=== PATIENT | female | born 1960 | race Caucasian/White ===

== ENCOUNTER 2016-09-29 04:11 | Emergency (ER) | payer BC ==
[2016-09-29 04:41] VITALS: BP 124/83; PULSE 70; TEMP 98.2; BMI 26.2
[2016-09-29] MEDS ORDERED: PHENAZOPYRIDINE HCL 100 MG TABLET (FP) PO ONE (05:03)
[2016-09-29 05:07] LABS: URINE APPEARANCE CLOUDY; URINE BILIRUBIN NEGATIVE (NEGATIVE); URINE BLOOD 3+ (NEGATIVE); URINE COLOR RED; URINE GLUCOSE (UA) NEGATIVE (NEGATIVE); URINE KETONE NEGATIVE (NEGATIVE); URINE NITRITE NEGATIVE (NEGATIVE); URINE UROBILINOGEN NEGATIVE mg/dL (0.2-1.0)
[2016-09-29 05:08] LABS: URINE LEUK ESTERASE 3+ (NEGATIVE); URINE PROTEIN 2+ (NEGATIVE)
[2016-09-29] MEDS ORDERED: PHENAZOPYRIDINE HCL 100 MG TABLET (FP) ONE (05:10)
--- NOTE | 2016-09-29 05:12 | PDOC ---
History of Present Illness - General Chief Complaint: Hematuria Stated Complaint: BLOOD IN URINE Time Seen by Provider: 09/29/16 04:34 - History of Present Illness Initial Comments: 09/29/16 05:11 CHIEF COMPLAINT: blood in urine HISTORY OF PRESENT ILLNESS: 56 yo F with no PMH presents to ED with blood in urine. Patient reports that she has urinary urgency, frequency, and burning with urination. She reports that she has had multiple UTIs in the past and this feels like a UTI, but she got concerned when she saw blood in her urine so she came to the ER. PAST MEDICAL HISTORY: Denies past medical history FAMILY HISTORY: Denies SOCIAL HISTORY: Denies tobacco, alcohol, illicit drug use. SURGICAL HISTORY: Denies ALLERGIES: PCN REVIEW OF SYSTEMS General/Constitutional: Denies fever or chills. Denies weakness, weight change. HEENT: Denies change in vision. Denies ear pain or discharge. Denies sore throat. Cardiovascular: Denies chest pain or shortness of breath. Respiratory: Denies cough, wheezing, or hemoptysis. Gastrointestinal: Denies nausea, vomiting, diarrhea or constipation. Denies rectal bleeding. Genitourinary: Denies dysuria, frequency, or change in urination. Musculoskeletal: Denies joint or muscle swelling or pain. Denies neck or back pain. Skin and breasts: Denies rash or easy bruising. PHYSICAL EXAM General Appearance: Well-appearing, appropriately dressed. No apparent distress , no intoxication. HEENT: EOMI, PERRLA, normal ENT inspection, normal voice, TMs normal, pharynx normal. No conjunctival pallor. No photophobia, scleral icterus. Neck: Supple. Trachea midline. No tenderness, rigidity, carotid bruit, stridor , lymphadenopathy, or thyromegaly. Respiratory/Chest: Lungs CTAB. No shortness of breath, chest tenderness, respiratory distress, accessory muscle use. No crackles, rales, rhonchi, stridor , wheezing, dullness Cardiovascular: RRR. S1, S2. Gastrointestinal/Abdominal: Normal bowel sounds. Abdomen soft, non-distended. No tenderness or rebound tenderness. No organomegaly, pulsatile mass, guarding , hernia, hepatomegaly, splenomegaly. Lymphatic: No adenopathy, tenderness. Musculoskeletal/Extremities: R sided CVA tenderness. Normal inspection. FROM of all extremities, normal capillary refill. Pelvis Stable. No CVA tenderness. No tenderness to extremities, pedal edema, swelling, erythema or deformity. Integumentary: Appropriate color, dry, warm. No cyanosis, erythema, jaundice or rash Neurologic: delimber operator II-XII intact. Fully oriented, alert. Appropriate mood/affect. Motor strength 5/5. No appreciable EOM palsy, facial droop or sensory deficit. 09/29/16 05:41 Past History - Past Medical History Allergies/Adverse Reactions: Allergies Allergy/AdvReac Type Severity Reaction Status Date / Time Penicillins Allergy Swelling Verified 09/29/16 04:42 Home Medications: Ambulatory Orders Fexofenadine/Pseudoephedrine [Lindsay-D 24 Hour Tablet] 1 tab PO DAILY 09/29/16 Nitrofurantoin Monohyd/M-Cryst [Macrobid -] 100 mg PO BID #14 capsule 09/29/16 Omeprazole 20 mg PO DAILY 09/29/16 Phenazopyridine HCl [Pyridium] 100 mg PO Q8H PRN #21 tablet 09/29/16 Propranolol HCl [Inderal Xl] 120 mg PO DAILY 09/29/16 - Psycho/Social/Smoking Cessation Hx Suicidal Ideation: No Smoking History: Never smoked Hx Alcohol Use: No Drug/Substance Use Hx: No *Physical Exam - Vital Signs Last Vital Signs Temp Pulse Resp BP Pulse Ox 98.2 F 70 16 124/83 100 09/29/16 04:25 09/29/16 04:25 09/29/16 04:25 09/29/16 04:25 09/29/16 04:25 ED Treatment Course - ADDITIONAL ORDERS Additional order review: Laboratory Results 09/29/16 04:55 Urine Color Red Urine Appearance Cloudy Urine pH 7.0 Urine Protein 2+ H Urine Glucose (UA) Negative Urine Ketones Negative Urine Blood 3+ H Urine Nitrite Negative Urine Bilirubin Negative Urine Urobilinogen Negative Ur Leukocyte Esterase 3+ H - Medications Given in the ED: ED Medications Discontinued Medications Generic Name Dose Route Start Last Admin Trade Name Freq PRN Reason Stop Dose Admin Phenazopyridine HCl 100 mg 09/29/16 05:03 09/29/16 05:08 Pyridium - PO 09/29/16 05:04 100 mg ONCE ONE Administration *DC/Admit/Observation/Transfer Diagnosis at time of Disposition: Urinary tract infection Qualifiers: Urinary tract infection type: site unspecified Hematuria presence: with hematuria Qualified Code(s): N39.0 - Urinary tract infection, site not specified - Discharge Dispostion Disposition: HOME Condition at time of disposition: Stable - Prescriptions Prescriptions: Nitrofurantoin Monohyd/M-Cryst [Macrobid -] 100 mg PO BID #14 capsule Phenazopyridine HCl [Pyridium] 100 mg PO Q8H PRN #21 tablet PRN Reason: Pain - Referrals Referrals: José Antonio Nance MD [Staff Physician] - - Patient Instructions Printed Discharge Instructions: DI for Urinary Tract Infection (UTI) Additional Instructions: Please take medications as prescribed. Follow up with urology (referral provided) for further evaluation of your recurrent UTIs. If you experience any fever, vomiting, diarrhea, or any new or worsening symptoms, please return to the ER.
[2016-09-29 05:18] LABS: CALCIUM OXALATE CRYSTALS RARE /hpf (NONE SEEN); URINE BACTERIA FEW /hpf (NONE SEEN); URINE MUCUS RARE; URINE RBC 3645 /hpf (0-3); URINE WBC 469 /hpf (3-5)
[2016-09-29] MEDS ORDERED: ONDANSETRON *ODT* 4 MG TABLET ONE (05:36)
[2016-09-29] MEDS ORDERED: NITROFURANTOIN MACROCRYSTAL 50 MG CAPSULE (FP) ONE (05:36)
[2016-09-29] MEDS ORDERED: ONDANSETRON *ODT* 4 MG TABLET SL ONE (05:37)
[2016-09-29] MEDS ORDERED: NITROFURANTOIN MACROCRYSTAL 50 MG CAPSULE (FP) PO SCH (05:45)
--- NOTE | 2016-10-02 08:25 | PDOC ---
*Physical Exam - Vital Signs Last Vital Signs Temp Pulse Resp BP Pulse Ox 98.2 F 70 16 124/83 100 09/29/16 04:25 09/29/16 04:25 09/29/16 04:25 09/29/16 04:25 09/29/16 04:25 ED Treatment Course - Medications Given in the ED: ED Medications Discontinued Medications Generic Name Dose Route Start Last Admin Trade Name Freq PRN Reason Stop Dose Admin Nitrofurantoin Macrocrystals 100 mg 09/29/16 05:45 09/29/16 05:41 Macrodantin - PO 100 mg ONCE ADITHYA Administration Ondansetron HCl 8 mg 09/29/16 05:37 09/29/16 05:41 Zofran Odt - SL 09/29/16 05:38 8 mg ONCE ONE Administration Phenazopyridine HCl 100 mg 09/29/16 05:03 09/29/16 05:08 Pyridium - PO 09/29/16 05:04 100 mg ONCE ONE Administration Medical Decision Making - Medical Decision Making 10/02/16 08:25 Patient seen and evaluated with [facility]. Agree with assessment and plan. *DC/Admit/Observation/Transfer Diagnosis at time of Disposition: Urinary tract infection Qualifiers: Urinary tract infection type: site unspecified Hematuria presence: with hematuria Qualified Code(s): N39.0 - Urinary tract infection, site not specified - Discharge Dispostion Disposition: HOME Condition at time of disposition: Stable - Prescriptions Prescriptions: Nitrofurantoin Monohyd/M-Cryst [Macrobid -] 100 mg PO BID #14 capsule Phenazopyridine HCl [Pyridium] 100 mg PO Q8H PRN #21 tablet PRN Reason: Pain - Referrals Referrals: José Antonio Nance MD [Staff Physician] - - Patient Instructions Printed Discharge Instructions: DI for Urinary Tract Infection (UTI) Additional Instructions: Please take medications as prescribed. Follow up with urology (referral provided) for further evaluation of your recurrent UTIs. If you experience any fever, vomiting, diarrhea, or any new or worsening symptoms, please return to the ER. - Post Discharge Activity
== END 2016-09-29 05:58 | disposition home or self-care (01) ==
LOC: JER 04:11
DX: N39.0 Urinary tract infection, site not specified (principal)
CPT/HCPCS: 81003; 81015; 99281-25